=== PATIENT | female | born 1955 | race Two or more races ===

== ENCOUNTER 2018-10-02 07:50 | Day surgery (SDC) | payer OTHER ==
[2018-10-02] MEDS ORDERED: CEFAZOLIN 2 GM/50 ML (PMX) 50 ML IVPB (09:00)
[2018-10-02] MEDS ORDERED: SOD CHLORIDE 0.9% 1,000 ML IV (09:00)
[2018-10-02] MEDS: ACETAMINOPHEN 500 MG TAB PO (11:02)
[2018-10-02] MEDS ORDERED: CEFAZOLIN 1 GM INJ (11:34)
[2018-10-02] MEDS ORDERED: MIDAZOLAM 1 MG/ML 2 ML INJ (11:34)
[2018-10-02] MEDS ORDERED: ONDANSETRON 4 MG INJ (11:34)
[2018-10-02] MEDS ORDERED: LIDOCAINE 2% (SDV) 5 ML INJ (11:34)
[2018-10-02] MEDS ORDERED: FENTAnyl 50 MCG/ML VIAL (11:34)
[2018-10-02] MEDS ORDERED: PROPOFOL 40 ML (11:34)
[2018-10-02] MEDS ORDERED: FAMOTIDINE 20 MG INJ (11:34)
[2018-10-02] MEDS ORDERED: LIDOCAINE 1%/EPI (1:100,000) (MDV) 20 ML (12:44)
[2018-10-02] MEDS: LIDOCAINE 1%/EPI (1:100,000) (MDV) 20 ML (12:55)
[2018-10-02] MEDS: LIDOCAINE 1%/EPI 30 ML INJ INJ (12:55)
[2018-10-02] MEDS ORDERED: GLYCOPYRROLATE 0.4 MG INJ (12:59)
[2018-10-02] MEDS ORDERED: KETAMINE (50 MG/ML) 10 ML VIAL (12:59)
[2018-10-02] MEDS ORDERED: ALBUTEROL 0.083% (NEB) 2.5 MG/3 ML AMP HHN (13:00)
[2018-10-02] MEDS ORDERED: MEPERIDINE 25 MG INJ IV (13:00)
[2018-10-02] MEDS ORDERED: morphine (1 MG/ML) 10ML SYRINGE IV ×2 (13:00)
[2018-10-02] MEDS ORDERED: HYDROmorphONE 1 MG/5 ML IV SYRINGE IV ×2 (13:00)
[2018-10-02] MEDS ORDERED: DIPHENHYDRAMINE 50 MG INJ IV (13:00)
[2018-10-02] MEDS ORDERED: ONDANSETRON 4 MG INJ IV (13:00)
[2018-10-02] MEDS ORDERED: LABETALOL HCL 20MG INJ IV (13:00)
[2018-10-02] MEDS ORDERED: OXYCODONE/ACETAMINOPHEN (5/325) TAB PO ×2 (13:00)
[2018-10-02] MEDS ORDERED: FENTAnyl 50 MCG/ML VIAL IV ×2 (13:00)
[2018-10-02] MEDS ORDERED: HYDROCODONE/APAP (7.5/325) TAB PO ×2 (14:00)
== END 2018-10-02 15:24 | disposition home or self-care (01) ==
LOC: SDS 07:50
DX: D24.1 Benign neoplasm of right breast (principal); N60.91 Unspecified benign mammary dysplasia of right breast; I10 Essential (primary) hypertension; I48.91 Unspecified atrial fibrillation
CPT/HCPCS: 19301; 88307; 88341; 88342